=== PATIENT | female | born 1935 | race Caucasian/White ===

== ENCOUNTER 2019-02-12 05:58 | Day surgery (SDC) | payer MEDICARE, OTHER ==
[2019-02-12] MEDS: LACTATED RINGER'S 1,000 ML IV* (07:06)
[2019-02-12] MEDS ORDERED: MIDAZOLAM 1 MG/ML 2 ML INJ (07:30)
[2019-02-12] MEDS ORDERED: FENTAnyl 50 MCG/ML VIAL (07:30)
[2019-02-12] MEDS ORDERED: CEFAZOLIN 1 GM INJ (08:09)
[2019-02-12] MEDS ORDERED: PROPOFOL 40 ML (08:09)
[2019-02-12] MEDS ORDERED: LIDOCAINE 2% (SDV) 5 ML INJ (08:09)
[2019-02-12] MEDS: BUPIVACAINE 0.5% (SDV) 30 ML INJ (08:20)
[2019-02-12] MEDS ORDERED: ONDANSETRON 4 MG INJ (08:29)
[2019-02-12] MEDS ORDERED: DEXAMETHASONE 4 MG/ML 5 ML INJ (08:42)
[2019-02-12] MEDS ORDERED: ONDANSETRON 4 MG INJ IV (09:00)
[2019-02-12] MEDS ORDERED: MEPERIDINE 25 MG INJ IV (09:00)
[2019-02-12] MEDS ORDERED: FENTAnyl 50 MCG/ML VIAL IV (09:00)
[2019-02-12] MEDS ORDERED: HYDROmorphONE 1 MG/5 ML IV SYRINGE IV (09:00)
[2019-02-12] MEDS: POLYMYXIN/BACITRACIN 1L IRRIG (09:40)
== END 2019-02-12 10:40 | disposition home or self-care (01) ==
LOC: SDS 05:58
DX: S63.114A Dislocation of metacarpophalangeal joint of right thumb, initial encounter (principal); S63.641A Sprain of metacarpophalangeal joint of right thumb, initial encounter; X58.XXXA Exposure to other specified factors, initial encounter; E03.9 Hypothyroidism, unspecified; J45.909 Unspecified asthma, uncomplicated
CPT/HCPCS: 26540; 73130-RT